=== PATIENT | male | born 1960 | race Caucasian/White ===

== ENCOUNTER 2016-04-16 23:37 | Observation (INO) | payer BC ==
[~2016-04-16] VITALS: Ht 185.4 cm; Wt 96.2 kg
[2016-04-16 23:41] VITALS: BP 175/99
--- NOTE | 2016-04-16 23:48 | Emergency Room Report ---
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 PT DENIES ANY PAIN AT THIS TIME AND ADVISES HE CAN BITS AND PIECES OF TONIGHTS EVENTS. NO DEFICITS NOTED Onset of symptoms date/time:/ or onset unknown for:MEDICAL HX UNKNOWN Treatment Prior to Arrival: PT HAD 20 G IN THE RIGHT WRIST WITH NS RUNNING KVO. 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 N Clinical Suspician of Infection? N Mental Status: 1 - Regular (Normal Baseline) Sepsis Risk:Low Sepsis Risk Have you (or family members/close friends) recently traveled outside the [place]? N If Yes, where/when: Have you had exposure to infectious disease within the past month? N TB? Other? Specify: Source patient, RN notes reviewed, family, old records Exam Limitations no limitations Comment pt with acute syncope episode this am with no fever or trauma and pt unable to give specific details Cardiac Chest Pain Chest pain indicative of cardiac No Timing/Duration this evening Severity moderate ALLERGIES Coded Allergies: No Known Allergies (04/16/16) Home Medications Reported Medications No Known Home Medications History Medical History General CAD? No Angina: No [place]: No Hypertension? No Hyperlipidemia? No CHF? No DVT? No PE? No COPD? No Asthma? No Anemia? No GERD? No Gastric ulcers? No GI Bleed? No Hernia? No Thyroid Problems? No Hypothyroidism? No CVA? No Seizures? No Diabetes? No Renal Insuffiency? No End Stage Renal Disease? No UTI? No Stones? No BPH? No GB Disease: No Nephritic Syndrome? No Asplenia? No Hepatitis? No Sickle Cell Disease? No Arthritis? No Migraines? No Cataracts? No Glaucoma? No MRSA? No HIV? No TB? No Anxiety? No Depression? No Cancer? No More? No Immunization Hx DT/Tetanus 1-4 Years Ago Surgical Hx Previous Surgery?N Social History Smoking Hx Smoker: Current Every Day Smoker Tobacco: Yes Type Cigarettes Alcohol Alcohol: Yes Drugs none Review of Systems All Other Systems Reviewed and Negative Constitutional denies fever Eyes denies drainage ENT see HPI. denies: ear discharge, epistaxis, throat pain. Respiratory denies cough, denies shortness of breath, denies wheezing Cardiovascular see HPI, denies chest pain, syncope Gastrointestinal denies abdominal pain, denies diarrhea, denies vomiting Genitourinary denies: dysuria, frequency, hesitancy, hematuria. Musculoskeletal denies back pain, denies joint pain, denies joint swelling, denies neck pain Skin denies rash Psychiatric/Neurological denies headache, denies seizure Physical Exam Vital Signs Vital Signs Date Time Temp Pulse Resp B/P Pulse O2 O2 Flow FiO2 Ox Delivery Rate 04/17 0045 88 20 161/100 92 04/16 2341 98.5 92 16 175/99 98 - WBC >12,000 or <4,000 or 10% bands? 2 or more SIRS Criteria Met? B/P:161/100 MAP:124 Creatinine >2.0? UA output<0.5ml/kg/hr for 2 hrs? Platelet count >100,000? Lactate >2.0mmol/1? INR >1.2 or PTT > than 60 sec? Evidence of Organ Dysfunction? Provider documented clinical suspician of infection? N Sepsis Criteria Count: 1 Sepsis Risk: Low Sepsis Risk General Appearance no apparent distress Eye Exam - bilateral eye PERRL, bilateral eye EOMI Ear, Nose, Throat no bleeding and abrasion tenderness Neck supple, carotid bruit Respiratory Status No: respiratory distress. Lung Sounds bilateral: lungs clear. 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 No Results/Orders Laboratory Tests 04/17/16 0100: Opiates Screen NEGATIVE, Urine Methadone Screen NEGATIVE, Barbiturates NEGATIVE, Phencyclidine Screen NEGATIVE, Amphetamines Screen NEGATIVE, Benzodiazepines Screen NEGATIVE, Cocaine Screen NEGATIVE, Marijuana (THC) Screen NEGATIVE, Urine Color YELLOW, Urine Appearance CLEAR, Urine pH 7.5, Ur Specific [place] 1.015, Urine Protein NEGATIVE, Urine Ketones NEGATIVE, Urine Blood 3+ H, Urine Nitrate NEGATIVE, Urine Bilirubin NEGATIVE, Urine Urobilinogen 0.2, Ur Leukocyte Esterase NEGATIVE, Urine RBC 5-10, Urine WBC OCC, Amorphous Sediment 1+, Urine Bacteria 1+, Urine Glucose NEGATIVE 04/17/16 0010: Sodium 139, Potassium 3.5, Chloride 102, Carbon Dioxide 32, BUN 14, Creatinine 1.1, Estimated Creat Clear 97, Estimated GFR (MDRD) 69, Glucose 99, Calcium 9.1, Total Bilirubin 0.3, AST 17, ALT 35, Alkaline Phosphatase 95, Creatine Kinase 586 H, CK-MB (CK-2) Rel Index 1.2, CK and CKMB Interp 7.3 H, Troponin I 0.07 H, Total Protein 7.0, Albumin 3.4, Globulin 3.6 H, Albumin/Globulin Ratio 0.9 L, WBC 11.8 H, RBC 4.92, Hgb 16.0, Hct 46.3, MCV 94.1, RDW 12.3, Plt Count 346, MPV 5.6 L, Gran % 81.8 H, Gran # 9.6 H, Lymphocytes % 10.5, Monocytes % 5.7, Eosinophils % 1.6, Basophils % 0.4, Lymphocytes # 1.2, Monocytes # 0.7, Eosinophils # 0.2, Basophils # 0.1, PUBS MCHC 34.6, MCH 32.6 H, Alcohols 7 Current Medication Orders Sig/Ayanna Start time Last Medication Dose Route Stop Time Status Admin Sodium Chloride 10 ML PRN PRN 04/16 2344 AC IV 04/17 2345 Orders Procedure Date/time Status DIET-NOTHING BY MOUTH 04/17 B Active Decision to admit 04/17 0140 Active CHEST-AP VIEW ONLY 04/[address] SINUS (MAX-FACIAL W/O CONT) 04/[address] HEAD W/O CONTRAST 04/16 2352 Active ELECTROCARDIOGRAM REQUEST 04/[address] HEAD REQ 04/[address] SCAN REQUEST 04/16 2345 Complete IV SALINE LOCK 04/16 2345 Active URINALYSIS/COMPLETE 02/08 2346 Complete DRUG ABUSE SCREEN (TRIAGE) 04/16 2346 Complete CBC WITH AUTO DIFF 04/16 2346 Complete CARDIAC ENZYMES 04/16 2346 Complete CHEM 12 PROFILE 04/16 2346 Complete ALCOHOL 04/16 2346 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 ST/Twave chgs XRAY/CT/US XRAY/CT/US CT head, sinus CT interpretation by discussed w/radiologist Time results known: 0149 CT Results abnormal (nasal fx ) Departure Departure Time of Disposition 0139 Disposition Still a Patient Clinical Impression Primary Impression: Syncope Qualifiers: Syncope type: unspecified Qualified Code: R55 - Syncope and collapse Secondary Impressions: Hypertension Qualifiers: Hypertension type: essential hypertension Qualified Code: I10 - Essential (primary) hypertension Nasal fracture Qualifiers: Encounter type: initial encounter Fracture type: closed Qualified Code: S02.2XXA - Fracture of nasal bones, initial encounter for closed fracture Condition STABLE Referrals NO REFERRAL Additional Instructions discussed with dr zee Prescriptions Current Visit Scripts No Known Home Medications ED Critical Care Critical Care No at 0152
[2016-04-17] VITALS (9 sets, daily range): BP systolic 155–188; BP diastolic 85–101
[2016-04-17 00:30] LABS: LYMPH # 1.2 K/mm3 (0.7-4.5); LYMPH % 10.5 % (10-50)
[2016-04-17 01:14] LABS: URINE BILIRUBIN - DIPSTICK NEGATIVE (NEG); URINE BLOOD 3+ (NEG)
[2016-04-17 01:23] LABS: AMPHETAMINES/METAMPHETAMINES NEGATIVE ng/mL (<1000)
--- NOTE | 2016-04-17 05:35 | RADIOLOGY REPORT PS360 ---
CHEST-AP VIEW ONLY HISTORY: Syncope FALL ORDERING PHYSICIAN: Tha Bardales MD PATIENT AGE: 55 years COMPARISON: None available FINDINGS: The cardiomediastinal silhouette and pulmonary vascularity are within normal limits. The lungs are clear without infiltrates, suspicious nodules, or pleural effusions. No acute bony abnormalities. IMPRESSION: Negative chest, no acute finding
--- NOTE | 2016-04-17 05:37 | RADIOLOGY REPORT PS360 ---
CT HEAD W/O CONTRAST HISTORY: SYNCOPAL EPISODE ORDERING PHYSICIAN: Tha Bardales MD PATIENT AGE: 55 years COMPARISON: None TECHNIQUE: Axial images obtained without contrast. Brain and bone windows reviewed. FINDINGS: No midline shift, mass effect, intracranial hemorrhage, hydrocephalus, or extra-axial fluid collection is evident. The calvarium has an unremarkable appearance. No mastoid effusion. Is mild mucosal thickening of the paranasal sinuses. IMPRESSION: No acute intracranial pathology.
--- NOTE | 2016-04-17 05:41 | RADIOLOGY REPORT PS360 ---
CT SINUS (MAX-FACIAL W/O CONT) CLINICAL INDICATION: Negative swelling above left eye following syncope and head/facial injury. SYNCOPAL EPISODE ORDERING PHYSICIAN: Tha Bardales MD PATIENT AGE: 55 years COMPARISON: None TECHNIQUE:Axial, sagittal, and coronal images are generated and reviewed without contrast COMPARISON: None FINDINGS:Nondisplaced left-sided nasal bone fracture. No other fractures apparent. There is mild generalized mucosal thickening of the maxillary sinuses without air-fluid level. Slightly greater on the left. Mild mucosal thickening ethmoid sinuses and frontal sinuses and right sphenoid sinus. No mastoid effusion. There is mild leftward nasal septal deviation. Orbits have an unremarkable appearance. IMPRESSION: 1. Nondisplaced left nasal bone fracture. 2. Mild paranasal sinus disease
--- NOTE | 2016-04-17 07:21 | PHARMACY CLINIC NOTE ---
Patient Demographics Patient Demographics Admission date: 04/17/16 Date: 04/17/16 Time: 0720 Allergies Coded Allergies: No Known Allergies (04/16/16) HEIGHT- FT: 6 IN: 1.00 K.248 VTE General Information Labs: Laboratory Tests 04/17 001 Hematology Hgb (14.1 - 18.0 g/dL) 16.0 Hct (42.0 - 52.0 %) 46.3 Plt Count (142 - 424 K/mm3) 346 Disclaimer The following section includes nursing documentation that has been pulled in for pharmacy review. Patient's VTE score: 1 Patient's VTE Risk: VERY LOW RISK Clinical trial participant? No VTE prophylaxis NQF [id number] VTE prophylaxis ordered? Yes Type of prophylaxis/treatment: JENNIFER at 0720
--- NOTE | 2016-04-17 08:07 | CARDIOVASCULAR REPORT ---
"Cerebrovascular Exam Indications: 785.9 Bruit. 780.2 Syncope and collapse. IMPRESSIONS 1. The bilateral vertebral arteries are patent with normal antegrade flow. 2. Study suggests less than 20% stenosis involving the right internal carotid artery and the left internal carotid artery. History: Risk factors: Current tobacco use. Hypertension. Carotid duplex study. Complete study and Doppler flow study including spectral analysis, color and severino scale imaging. Height: Height: 185.4cm. Height: 73in. Weight: Weight: 90.7kg. Weight: 199.6lb. Body mass index: BMI: 26.4kg/m^2. Body surface area: BSA: 2.17m^2. Location: Vascular laboratory. Patient status: Inpatient. Tables: Arterial flow: + +--------+--------+ |Location |V sys |V ed | + +--------+--------+ |Right CCA - proximal|61.3cm/s|17.3cm/s| + +--------+--------+ |Right CCA - distal |65.2cm/s|18.9cm/s| + +--------+--------+ |Right ECA |108cm/s |--------| + +--------+--------+ |Right ICA - proximal|51.9cm/s|18.9cm/s| + +--------+--------+ |Right ICA - mid |47.1cm/s|20.4cm/s| + +--------+--------+ |Right ICA - distal |68.4cm/s|25.1cm/s| + +--------+--------+ |Right vertebral |59.7cm/s|--------| + +--------+--------+ |Left CCA - proximal |66.8cm/s|11.8cm/s| + +--------+--------+ |Left CCA - distal |70.7cm/s|21.2cm/s| + +--------+--------+ |Left ECA |96.6cm/s|--------| + +--------+--------+ |Left ICA - proximal |47.9cm/s|16.5cm/s| + +--------+--------+ |Left ICA - mid |64.4cm/s|23.6cm/s| + +--------+--------+ |Left ICA - distal |55.8cm/s|21.2cm/s| + +--------+--------+ |Left vertebral |35.4cm/s|--------| + +--------+--------+ Velocity ratios: + + + + + + | |Right, V sys|Right, V ed|Left, V sys|Left, V ed| + + + + + + |Max ICA/dist CCA|1.05 |1.33 |0.91 |1.11 | + + + + + + (Report amended ) Electronically signed by: Mayur Mast [id number]"
--- NOTE | 2016-04-17 10:42 | HISTORY AND PHYSICAL REPORT ---
Demographics: Admit date: 04/17/16 Chief complaint: syncope PRIMARY DIAGNOSIS: SYNCOPE Allergies: Coded Allergies: No Known Allergies (04/16/16) History of present illness: History of present illness: 55 year old white male with no significant medical presented to the ED via EMS after a syncopal episode at home. Patient reports he had been working on his truck in his garage for 1.5 hours with the vehicle idling. He further reports he drank 4-5 beers. He remembers going inside, eating a sandwich, showering and proceeding to bed. The next thing he remembers is feeling someone shaking him, opening his eyes and he was lying in the bathroom floor. He denies any dizziness, headaches or neurological symptoms. No chest pain, shortness of breath with exertion or palpitations. He has been feeling well with no recent viral illnesses. In the ED, CT head, CXR, CBC, and CMP were unremarkable. UDS was negative. UA showed 3+ blood. Patient denies any urinary or prostate symptoms. He has not had a prostate exam since he was 17 years old. CPK was mildly elevated with serial enzymes with highest troponin 0.10. Patient was admitted to acute care with telemetry for further evaluation. Today, he is feeling well. No dizziness or chest discomfort through the night. No further episodes of syncope. Past medical history: Family HX Diabetes No CAD No Hypertension No Hyperlipidemia No Cancer Yes TB No Immunization HX DT/Tetanus 1-4 Years Ago Flu Refused Pneumonia Never Had TB Test in last year No General CAD? No Angina: No [place]: No Hypertension? No Hyperlipidemia? No CHF? No DVT? No PE? No COPD? No Asthma? No Anemia? No GERD? No Gastric ulcers? No GI Bleed? No Hernia? No Thyroid Problems? No Hypothyroidism? No CVA? No Seizures? No Diabetes? No Renal Insuffiency? No UTI? No Stones? No BPH? No GB Disease: No Nephritic Syndrome? No Asplenia? No Hepatitis? No Sickle Cell Disease? No Arthritis? No Migraines? No Cataracts? No Glaucoma? No MRSA? No HIV? No TB? No Anxiety? No Depression? No Cancer? No More? No Past Surgical HX Previous Surgery?N Current home meds: Reported Medications No Known Home Medications Social Hx: Smoking HX Tobacco Yes Type Cigarettes Packs/day < 1 PACK Alcohol Alcohol: Yes How much do you drink Less Than One Drink A Day For how long 1-2 Years When was your last drink 12-24 Hours Ago Hx of Drug Use Drug Use? No Patient's support system is good Review of systems: Constitutional No: no symptoms reported. Eyes No: no symptoms reported. Ears, Nose, Mouth, Throat No no symptoms reported Respiratory No: no symptoms reported. Cardiovascular No see HPI Gastrointestinal/Abdominal No no symptoms reported Genitourinary No: no symptoms reported. Musculoskeletal No: no symptoms reported. Skin No: no symptoms reported. Neurological No: no symptoms reported. Psychiatric No: no symptoms reported. Exam: Lab data for last 24 hours: Laboratory Tests 04/17/16 0720: Creatine Kinase 479 H, CK-MB (CK-2) Rel Index 0.9, CK and CKMB Interp 4.5 H, Troponin I 0.07 H 04/17/16 0717: TSH 0.74 04/17/16 0420: Creatine Kinase 529 H, CK-MB (CK-2) Rel Index 1.0, CK and CKMB Interp 5.5 H, Troponin I 0.10 H 04/17/16 0100: Opiates Screen NEGATIVE, Urine Methadone Screen NEGATIVE, Barbiturates NEGATIVE, Phencyclidine Screen NEGATIVE, Amphetamines Screen NEGATIVE, Benzodiazepines Screen NEGATIVE, Cocaine Screen NEGATIVE, Marijuana (THC) Screen NEGATIVE, Urine Color YELLOW, Urine Appearance CLEAR, Urine pH 7.5, Ur Specific [place] 1.015, Urine Protein NEGATIVE, Urine Ketones NEGATIVE, Urine Blood 3+ H, Urine Nitrate NEGATIVE, Urine Bilirubin NEGATIVE, Urine Urobilinogen 0.2, Ur Leukocyte Esterase NEGATIVE, Urine RBC 5-10, Urine WBC OCC, Amorphous Sediment 1+, Urine Bacteria 1+, Urine Glucose NEGATIVE 04/17/16 0010: Sodium 139, Potassium 3.5, Chloride 102, Carbon Dioxide 32, BUN 14, Creatinine 1.1, Estimated Creat Clear 97, Estimated GFR (MDRD) 69, Glucose 99, Calcium 9.1, Total Bilirubin 0.3, AST 17, ALT 35, Alkaline Phosphatase 95, Creatine Kinase 586 H, CK-MB (CK-2) Rel Index 1.2, CK and CKMB Interp 7.3 H, Troponin I 0.07 H, Total Protein 7.0, Albumin 3.4, Globulin 3.6 H, Albumin/Globulin Ratio 0.9 L, WBC 11.8 H, RBC 4.92, Hgb 16.0, Hct 46.3, MCV 94.1, RDW 12.3, Plt Count 346, MPV 5.6 L, Gran % 81.8 H, Gran # 9.6 H, Lymphocytes % 10.5, Monocytes % 5.7, Eosinophils % 1.6, Basophils % 0.4, Lymphocytes # 1.2, Monocytes # 0.7, Eosinophils # 0.2, Basophils # 0.1, PUBS MCHC 34.6, MCH 32.6 H, Alcohols 7 Microbiology 04/17 1530 URINE CC: Urine Culture - RECD Admission vital signs: 1ST Vital Signs Result Date Time Pulse Ox 98 04/16 2340 B/P 175/99 04/16 2340 Temp 98.5 04/16 2340 Pulse 92 04/16 2340 Resp 16 04/16 2340 O2 Delivery ROOM AIR 04/17 0230 Exam General appearance: alert, no acute distress Eyes: anicteric ENT: mucous membranes moist Neck: normal inspection, non-tender, no carotid bruit, no JVD, full range of motion, range of motion Cardiovascular: no JVD, regular rate & rhythm, no murmur, normal peripheral pulses, no peripheral edema Respiratory: clear to auscultation, good air movement ABD: non-distended, normal bowel sounds, no rebound, soft, no tenderness, no guarding Genitourinary: normal voiding & quantity, no dysuria, no hematuria, urine clear Extremities: moves all Musculoskeletal: equal muscle strength, sensation intact Skin: dry, intact, normal color Neuro: intact, no deficit, normal mood/affect, oriented, speech clear Plan: Problem List 1. Syncope Assessment/Plan Preliminary carotid ultrasound is unremarkable. Syncope may be related to carbon monoxide exposure. Unable to add carboxyhemoglobin to initial blood draw per lab. Micturition syncope must also be excluded given the fact he was found in the bathroom indicating there may be a correlation with urination. He also had 3+ blood noted on UA. Will consider prostate exam in the am. Echo today. Continue telemetry. Consult cardiology for evaluation. 2. Hypertension Assessment/Plan Start Lisinopril. 3. Nasal fracture Plan: See above
--- NOTE | 2016-04-17 10:55 | CONSULT NOTE ---
Standard Demographics Patient Demo Date of Consultation: 04/17/16 Referring Provider: Tha Bardales MD Reason for Consultation: Syncope, elevated troponins PRIMARY DIAGNOSIS: SYNCOPE Problem list Problem list: 1. Tobacco use History of present illness: History of present illness: 55-year-old white male was admitted through the emergency room last evening for a syncopal episode with facial trauma. Patient was working on a vehicle in a closed garage while the car was running and had been drinking some beer without eating when all of a sudden he passed out. He denies any chest pain, palpitations or lightheadedness prior to the syncopal episode. Reportedly was out for a couple of minutes. He was transported to the emergency department with evaluation there and subsequent admission. Cardiac troponins have returned mildly positive. Cardiology consulted for evaluation and recommendations. Electrocardiogram is sinus rhythm with nonspecific ST-T wave abnormalities. Past Medical History: General: Hypertension No CVA No Seizures No TB No COPD No Asthma No Diabetes No Angina No [place] No Hyperlipidemia No Cancer No MRSA No GB Disease No Past Surgical HX: Previous Surgery?N Allergies Coded Allergies: No Known Allergies (04/16/16) Home medications: Reported Medications No Known Home Medications Current Medications: Current Medications Fentanyl Citrate 25 MCG PRN PRN IV (UNV) Fentanyl Citrate 50 MCG PRN PRN IV (UNV) Flumazenil 0.2 MG PRN PRN IV (UNV) Heparin Sodium/Sodium Chloride 3,000 UNITS PRN PRN IV (UNV) Lidocaine HCl 20 ML ONCE ONE IJ (UNV) Midazolam HCl 1 MG PRN PRN IV (UNV) Midazolam HCl 1 MG PRN PRN IV (UNV) Naloxone HCl 0.4 MG [id number] PRN IV (UNV) Nitroglycerin 800 MCG PRN PRN IV (UNV) Verapamil HCl 5 MG PRN PRN IV (UNV) Lisinopril 10 MG DAILY PO Polyethylene Glycol 17 GM DAILY PO (DC) Sodium Chloride 10 ML PRN PRN IV Clonidine HCl 0.1 MG ONCE ONE PO (DC) Ketorolac Tromethamine 30 MG ONCE ONE IV (DC) Clonidine HCl 0 .STK-MED ONE .ROUTE (DC) Ketorolac Tromethamine 0 .STK-MED ONE .ROUTE (DC) Acetaminophen 650 MG Q4HP PRN PO Nicotine 21 MG DAILYP PRN TD Ondansetron HCl 4 MG Q6HP PRN IV Sodium Chloride 1,000 ML .[id number] IV Sodium Chloride 10 ML PRN PRN IV Immunization HX DT/Tetanus 1-4 Years Flu Refused Pneumonia Never Had TB Test in last year No Family history Family HX Family Hx Insignificant No Diabetes No CAD No Hypertension No Hyperlipidemia No Cancer Yes TB No Social Hx: Smoking HX Tobacco Yes Type Cigarettes Packs/day < 1 PACK Alcohol Alcohol: Yes How much do you drink Less Than One Drink A Day For how long 1-2 Years When was your last drink 12-24 Hours Ago Hx of Drug Use Drug Use? No Review of systems: Constitutional No: no symptoms reported. Respiratory No: no symptoms reported. Cardiovascular see HPI, syncope Gastrointestinal/Abdominal No no symptoms reported Genitourinary No: no symptoms reported. Musculoskeletal No: no symptoms reported. Neurological No: no symptoms reported. Exam: Admission Vital Signs: 1ST Vital Signs Result Date Time Pulse Ox 98 04/16 2340 B/P 175/99 04/16 2340 Temp 98.5 04/16 2340 Pulse 92 04/16 2340 Resp 16 04/16 2340 O2 Delivery ROOM AIR 04/17 229 Last Vital Signs: Vital Signs Result Date Time Pulse Ox 96 04/17 920 B/P 159/97 04/17 920 Temp 97.4 04/17 920 Pulse 76 04/17 920 Resp 18 04/17 920 O2 Delivery ROOM AIR 04/17 824 Exam General appearance: alert, awake, no acute distress Neck: no carotid bruit, no JVD Cardiovascular: regular rate & rhythm, extra beats Respiratory: clear to auscultation, normal breath sounds ABD: soft, no tenderness Extremities: moves all, no peripheral edema Neuro: alert, intact, oriented, speech clear Laboratory data: Laboratory Tests 04/17/16 0720: Creatine Kinase 479 H, CK-MB (CK-2) Rel Index 0.9, CK and CKMB Interp 4.5 H, Troponin I 0.07 H 04/17/16 0420: Creatine Kinase 529 H, CK-MB (CK-2) Rel Index 1.0, CK and CKMB Interp 5.5 H, Troponin I 0.10 H 04/17/16 0100: Opiates Screen NEGATIVE, Urine Methadone Screen NEGATIVE, Barbiturates NEGATIVE, Phencyclidine Screen NEGATIVE, Amphetamines Screen NEGATIVE, Benzodiazepines Screen NEGATIVE, Cocaine Screen NEGATIVE, Marijuana (THC) Screen NEGATIVE, Urine Color YELLOW, Urine Appearance CLEAR, Urine pH 7.5, Ur Specific [place] 1.015, Urine Protein NEGATIVE, Urine Ketones NEGATIVE, Urine Blood 3+ H, Urine Nitrate NEGATIVE, Urine Bilirubin NEGATIVE, Urine Urobilinogen 0.2, Ur Leukocyte Esterase NEGATIVE, Urine RBC 5-10, Urine WBC OCC, Amorphous Sediment 1+, Urine Bacteria 1+, Urine Glucose NEGATIVE 04/17/16 0010: Sodium 139, Potassium 3.5, Chloride 102, Carbon Dioxide 32, BUN 14, Creatinine 1.1, Estimated Creat Clear 97, Estimated GFR (MDRD) 69, Glucose 99, Calcium 9.1, Total Bilirubin 0.3, AST 17, ALT 35, Alkaline Phosphatase 95, Creatine Kinase 586 H, CK-MB (CK-2) Rel Index 1.2, CK and CKMB Interp 7.3 H, Troponin I 0.07 H, Total Protein 7.0, Albumin 3.4, Globulin 3.6 H, Albumin/Globulin Ratio 0.9 L, WBC 11.8 H, RBC 4.92, Hgb 16.0, Hct 46.3, MCV 94.1, RDW 12.3, Plt Count 346, MPV 5.6 L, Gran % 81.8 H, Gran # 9.6 H, Lymphocytes % 10.5, Monocytes % 5.7, Eosinophils % 1.6, Basophils % 0.4, Lymphocytes # 1.2, Monocytes # 0.7, Eosinophils # 0.2, Basophils # 0.1, PUBS MCHC 34.6, MCH 32.6 H, Alcohols 7 Plan: Assessment: 1. Syncopal episode 2. Elevated troponins 3. Tobacco use 4. No tachycardia or bradycardia arrhythmias noted on telemetry. 5. Patient denies diabetes, hypertension, hyperlipidemia or significant family history of coronary artery disease. Recommendations: 1. Will proceed with cardiac catheterization to evaluate coronary artery disease as a source of his syncopal episode in light of the elevated troponins. Telemetry has not revealed any arrhythmias or significant bradycardia. 2. Further recommendations pending cardiac catheterization. at [id number]
--- NOTE | 2016-04-17 11:43 | RADIOLOGY REPORT PS360 ---
PROCEDURE: 2-D M-mode and color Doppler study INDICATIONS FOR THE TEST: Chest pain COPD Heart Murmur Tobacco SmokingX Palpitations Fatigue SyncopeX Edema HypertensionXDiabetes Mellitus Rheumatic Fever SOB TORIBIO Obesity Hyperlipidemia Family History HD Additional History PATIENT INFORMATION HEIGHT: 72 WEIGHT:212 GENDER: Male B/P:140/70 2-D/M-MODE INTERPRETATION: 2-D MEASUREMENTS OBSERVED VALUES IN CMS Right Ventricular Dimension (RVDd) 1.5 Interventricular Septum (Thickness)(IVsd) 1.1 Left Ventricular Internal Dimensions(LVIDd) 5.7 Left Ventricular Posterior Wall (Thickness)(LVPWd) 1.1 Aortic Root 3.9 Aortic Cusp Separation 2.0 Left Atrial Dimensions (LAD) 2.4 2D 1. Technically difficult study because of patient's factor and poor acrostic Windows. 2. The left atrium is normal size, the left ventricle is normal size, the left ventricle wall thickness is upper limit of the normal, visually estimated ejection fraction of 55% with no obvious regional wall motion abnormality. 3. The right atrium and right ventricle are normal size and contractility. 4. The aortic mitral and tricuspid valve is structurally normal. 5. The pulmonic valve is not well visualized. 6. No significant pericardial effusion noted. DOPPLER INTERROGATION: Doppler interrogation of the aortic mitral and tricuspid valve reveals presence of trace mitral and tricuspid regurgitation of no hemodynamic significance, tricuspid regurgitant jet velocity insufficient for calculation of right ventricular systolic pressure. The diastolic millimeters of within normal range. CONCLUSION: 1. Technically difficult study because of the patient's factor and poor acrostic Windows. 2. Normal left ventricular size preserved left ventricular systolic function visually estimated ejection fraction 55% with no obvious regional wall motion abnormality. 3. Trace mitral and tricuspid regurgitation of no hemodynamic significance. 4. The diastolic parameters are within normal range. 5. No significant pericardial effusion noted.
[2016-04-18 00:25] VITALS: BP 158/97
[2016-04-18 04:27] VITALS: BP 168/99
[2016-04-18 06:46] LABS: HEMOGLOBIN 16.2 g/dL (14.1-18.0); LYMPH # 2.1 K/mm3 (0.7-4.5); LYMPH % 26.8 % (10-50)
[2016-04-18 08:00] VITALS: BP 143/81
--- NOTE | 2016-04-18 08:09 | ACUTE CARE PROGRESS NOTE (QUA) ---
Progress Notes Admission Date: 04/17/16 Subjective Date 04/18/16 Time 0806 Note Patient a good night sleep, this morning feels well. is n.p.o. for heart catheterization. Notes and outcome from cardiology testing reviewed. Heart irregular, lungs clear. I did prostate exam because of his micturition syncope and blood in his urine. He has a slightl right lobe enlargement, no discrete nodules, prostate gland is approximally 45 Objective Findings Last VS-Temp:97.9 B/P:168/99 Pulse:63 Resp:16 SaO2:96 ROOM AIR Last weight lbs:212 oz:3 K.248 Method:Bed Scales Assessment/Plan Problem List 1. Syncope Qualifiers: Syncope type: unspecified Qualified Code: R55 - Syncope and collapse 2. Hypertension Qualifiers: Hypertension type: essential hypertension Qualified Code: I10 - Essential ( primary) hypertension 3. Nasal fracture Qualifiers: Encounter type: initial encounter Fracture type: closed Qualified Code: S02.2XXA - Fracture of nasal bones, initial encounter for closed fracture 4. BPH (benign prostatic hypertrophy) Patient condition Stable Plan: continue current care, check PSA given enlargement of gland. Otherwise followup with her catheterization today This inpt stay is expected to cross 2 MNs from start of care No at 0808
--- NOTE | 2016-04-18 12:15 | RADIOLOGY REPORT PS360 ---
CARDIAC CATHETERIZATION DATE OF CATHETERIZATION:04/18/2016 12:04 PM PROCEDURES: 1. Left heart catheterization 2. Left ventriculogram 3. Selective coronary angiogram INDICATION FOR TEST: 1. Syncope 2. Positive troponins consistent with acute non-ST elevation myocardial infarction Informed consent was obtained prior to the procedure. COMPLICATIONS: None ESTIMATED BLOOD LOSS: Less than 10 ml. TECHNIQUE: One percent lidocaine used to anesthetize the right anterior aspect of the wrist. The right radial artery was accessed via the Seldinger technique. A 5 [place] sheath was placed in the right radial artery. 2.5 mg of verapamil and 800 mcg of nitroglycerin were given through the arterial sheath. The Rosetta catheter was also used to perform left heart catheterization and left ventriculography. At the end of the procedure the patient was transferred to the post-op holding area in stable condition for arterial sheath removal. ANGIOGRAPHIC RESULTS: 1. The left main artery normal 2. The left anterior descending artery normal 3. The circumflex artery dominant normal 4. The right coronary artery normal 5. The MITTAL ventriculogram reveals normal 65% 6. The left ventricular end-diastolic pressure normal 10 mmHg IMPRESSION: 1. Normal coronary arteries. 2. Normal ejection fraction 3. Normal left ventricular end-diastolic pressure PLAN: 1. Nonischemic evaluation of syncope
[2016-04-18] MEDS ORDERED: LISINOPRIL10 MG PO (13:30)
--- NOTE | 2016-04-18 13:31 | DISCHARGE SUMMARY STANDARD ---
Demographics Admit date: 04/17/16 Discharge date: 04/18/16 History of present illness History of present illness 55 year old white male with no significant medical presented to the ED via EMS after a syncopal episode at home. Patient reports he had been working on his truck in his garage for 1.5 hours with the vehicle idling. He further reports he drank 4-5 beers. He remembers going inside, eating a sandwich, showering and proceeding to bed. The next thing he remembers is feeling someone shaking him, opening his eyes and he was lying in the bathroom floor. He denies any dizziness, headaches or neurological symptoms. No chest pain, shortness of breath with exertion or palpitations. He has been feeling well with no recent viral illnesses. In the ED, CT head, CXR, CBC, and CMP were unremarkable. UDS was negative. UA showed 3+ blood. Patient denies any urinary or prostate symptoms. He has not had a prostate exam since he was 17 years old. CPK was mildly elevated with serial enzymes with highest troponin 0.10. Patient was admitted to acute care with telemetry for further evaluation. Today, he is feeling well. No dizziness or chest discomfort through the night. No further episodes of syncope. Hospital Course Hospital Course: Patient was admitted, worked up with echocardiogram, carotid Dopplers. Given his history of micturition syncope-possibly, prostate exam was done which revealed minimally enlarged gland but no nodules. PSA was unremarkable. Patient tolerated heart catheter today very nicely with no lesions and normal results. We discharged home with blood pressure control, close followup in our office in 5 days. Discharge diagnoses Problem List 1. Syncope 2. Hypertension 3. Nasal fracture 4. BPH (benign prostatic hypertrophy) Medications Medications: Discharge meds are as noted. Follow up Follow up in office in: 5 DAYS with: RIN NEWSOME APRN at [id number]
[2016-04-18 14:46] VITALS: BP 136/88
== END 2016-04-18 14:35 | disposition home or self-care (01) ==
LOC: ER 23:37 → 2ND 04-17 01:41
PROVIDERS: Emergency Medicine; Internal Medicine
PROC: B2111ZZ Fluoroscopy of Multiple Coronary Arteries using Low Osmolar Contrast (ICD-10-PCS; 2016-04-18)
PROC: B2151ZZ Fluoroscopy of Left Heart using Low Osmolar Contrast (ICD-10-PCS; 2016-04-18)
PROC: 4A023N7 Measurement of Cardiac Sampling and Pressure, Left Heart, Percutaneous Approach (ICD-10-PCS; principal; 2016-04-18 11:00)
DX: R55 Syncope and collapse (principal); R74.9 Abnormal serum enzyme level, unspecified; I10 Essential (primary) hypertension; S02.2XXA Fracture of nasal bones, initial encounter for closed fracture
CPT/HCPCS: C1725; C1769; G0378; G6040; J1644; Q9967